=== PATIENT | female | born 1960 | race Caucasian/White ===

== ENCOUNTER 2019-06-11 18:47 | Emergency (ER) | payer OTHER ==
[2019-06-11 18:58] VITALS: TEMP 98.4; BMI 28.3
--- NOTE | 2019-06-11 18:59 | PDOC ---
Rapid Medical Evaluation Medical Evaluation: I have performed a brief in-person evaluation of this patient. The patient presents with a chief complaint of: c/o LUE shaking/heaviness x 6 months; recently came from [place] 3 days ago; also c/o substernal chest burning and tightness x 3 days; per son, patient has intermittent SOB x 2-3 weeks, but breathing heavier the past 2-3 days; hx of HLD Pertinent physical exam findings: Lungs clear, +LUE shaking, no focal deficits I have ordered the following: Labs, EKG The patient will proceed to the ED for further evaluation. 06/11/19 18:52
--- NOTE | 2019-06-11 20:33 | PDOC ---
History of Present Illness - General Chief Complaint: Chest Pain Stated Complaint: LEFT SIDE WEAKNESS Time Seen by Provider: 06/11/19 18:52 History Source: Patient, Family Exam Limitations: Language Barrier (Son translating at bedside) - History of Present Illness Initial Comments: 06/11/19 20:21 58yo never smoker with PMH HLD presenting with 3 days of intermittent substernal non-radiating chest tightness / burning that improves with advil and does not appear to be correlated with meals. Pt flew in from [place] 4-5 days ago. She endorses the sensation of not breathing well with a chest heaviness, reports this feels different than prior episodes of burning epigastric pain. No prior stress tests or ECHO. Denies fevers / chills / cough / nausea / vomiting / hemoptysis / urinary symptoms / abdominal pain / changes in bowel habits, back pain, leg pain or swelling. No history of blood clots, stroke, or [place]. Also endorsing intermittent left arm shakiness, lack of concentration, left knee joint pain over the past 3-4 months. PMH: HLD PSH: remote All: Aspirin causes GI upset, unclear systemic reaction Meds: PRN advil and tylenol for aches and pains SHx: never smoker, no ETOH Past History - Travel Traveled outside of the country in the last 30 days: Yes If so, where?: [place] Close contact w/someone who was outside of country & ill: No - Past Medical History Allergies/Adverse Reactions: Allergies Allergy/AdvReac Type Severity Reaction Status Date / Time aspirin AdvReac Verified 06/11/19 18:58 COPD: No Hypercholesterolemia: Yes - Suicide/Smoking/Psychosocial Hx Smoking History: Never smoked Hx Alcohol Use: No Drug/Substance Use Hx: No Review of Systems - Review of Systems Able to Perform ROS?: Yes (With help of son) Is the patient limited Hungarian proficient: Yes Constitutional: Yes: Weakness, Weight Stable. No: Chills, Diaphoresis, Fever, Night Sweats, Unintentional Wgt. Loss HEENTM: No: Symptoms Reported, Eye Pain, Blurred Vision, Nose Pain, Nose Congestion, Throat Pain Respiratory: Yes: Symptoms reported, Shortness of Breath. No: Cough, Orthopnea , SOB with Exertion, Wheezing, Productive cough, Hemoptysis Cardiac (ROS): Yes: Symptoms Reported, See HPI, Chest Tightness. No: Edema, Irregular Heart Rate, Lightheadedness, Palpitations, Syncope ABD/GI: No: Symptoms Reported, Abdominal Distended, Abd. Pain w/ defecation, Constipated, Diarrhea, Nausea, Vomiting : No: Burning, Dysuria, Discharge, Hematuria, Pain Musculoskeletal: Yes: Symptoms Reported (chronic pain from ?slipped disk), Back Pain, Joint Pain, Muscle Weakness. No: Joint Swelling Integumentary: No: Symptoms Reported Neurological: Yes: Headache (normal tension, resolvd since triage). No: Numbness, Dizziness All Other Systems: Reviewed and Negative *Physical Exam - Vital Signs Last Vital Signs Temp Pulse Resp BP Pulse Ox 98.4 F 95 H 16 189/91 H 99 06/11/19 18:50 06/11/19 18:50 06/11/19 18:50 06/11/19 18:50 06/11/19 18:50 - Physical Exam Comments: 06/11/19 20:38 Vitals reviewed, notable for hypertension to 189/91, HR 95 Gen: WDWN woman, appears stated age, laying in bed in no acute distress HEENT: normal morphologies, nontraumatic, symmetric, trachea midline CV: ejection murmur heard best at right sternal margin 2nd intercostal space, RRR, s1/s2 appreciated Pulm: CTABL, normal work of breathing, no wheezes / rales / rhonchi, good air movement Abd: soft, nontender, nondistended Pulses: 2+ radial and PT Neuro: alert and oriented, responding appropriately, MAEE, slight tremor in left hand, good sensation and strength throughout Ext: WWP, no clubbing, cyanosis, or edema Heart Score/ECG Review - History History: Slightly suspicious - Electrocardiogram EKG: Normal - Age Age: 45-65 - Risk Factors Risk Factors Heart Score: Yes Hx Hypercholesterolemia, No Hx Diabetes, No Smoking History Based on the list above the patient has:: 1-2 risk factors - Troponin Troponin: </= normal limit - Score Heart Score - Total: 2 ED Treatment Course - LABORATORY CBC & Chemistry Diagram: 06/11/19 21:30 06/11/19 21:30 Medical Decision Making - Medical Decision Making 06/11/19 20:45 58yo never smoker with PMH HLD presenting with subacute intermittent substernal non-radiating chest tightness / burning that improves with advil and does not appear to be correlated with meals with several other complains of chronic pain , neurological complaints. History concerning for r/o ACS, physical exam reassuring with no signs of DVT (Wells for PE - zero), never smoker with equal pulses without tearing back pain making dissection less likely, lungs clear with no signs of fluid overload - unlikely new HF, minimal concern for pericardial effusion but will do POCUS to r/o and assess for right heart strain. HEART Score 2. Chronic neurological changes without any new focal neruo deficits deferred to outpatient neurology evaluation - possible remote stroke vs radiculopathy. No emergent intervention necessary at this time for these chronic symptoms. Will likely arrange outpatient cardiology follow up for new murmur - pending findings and ultimate disposition. -CBC, CMP, Cardiac Profile -EKG, CXR PA/LAt -POCUS ECHO 06/11/19 21:35 -POCUS with no evidence of pericardial effusion, normal symmetric wall motion appreciated, cannot comment on right heart strain due to limited study. -EKG: Poor quality 2/2/ tremor, NSR, Rate 93, QTc 455, Possible left atrial enlargement, no ischemic changes or other concerning morphologies appreciated -Labs pending 06/11/19 21:45 -1L IVF ordered -Add-on D-dimer 06/11/19 22:50 -Labs unremarkable -CXR taken, pending upload and read -Pt feeling better during walk to radiology and back Plan for d/c home pending CXR 06/11/19 22:56 -Chest xray with normal mediastinal silhouette, no evidence of consolidation or effusion, no acute fractures evident on my read No evidence of ACS, pericarditis, myocarditis, pulmonary embolism, pneumothorax , pneumonia, Zoster, or esophageal perforation. Historically not abrupt in onset , tearing or ripping, pulses symmetric, no evidence of aortic dissection. f/u with PCP for evaluation of chronic symptoms, HTN, murmur. *DC/Admit/Observation/Transfer Diagnosis at time of Disposition: Atypical chest pain - Discharge Dispostion Disposition: HOME Condition at time of disposition: Improved Decision to Admit order: No - Referrals Referrals: Cady Connor MD [Primary Care Provider] - - Patient Instructions Printed Discharge Instructions: DI for Atypical Chest Pain Additional Instructions: You were seen and evaluated in the emergency department for chest pain, emergent causes have been ruled out. Please arrange follow up with your primary care provider, Dr. Connor, in the next several days. Please ask about your blood pressure as it was elevated in the emergency department and may require medication. Also inquire about a new heart murmur. Your left arm twitching should also be evaluated by your primary care provider with the possibility of evaluation by a neurologist. SEEK IMMEDIATE MEDICAL CARE IF: You have increased chest pain or pain that spreads to your arm, neck, jaw, back, or abdomen. You develop shortness of breath, an increasing cough, or you start coughing up blood. You have severe back or abdominal pain, feel nauseous, or vomit You develop severe weakness, fainting, or chills. You have a fever. THESE ARE EMERGENCIES - Do not drive yourself to the hospital. - Post Discharge Activity
[2019-06-11] MEDS ORDERED: SODIUM CHLORIDE 1,000 ML IV STA (21:42)
--- NOTE | 2019-06-11 21:45 | PDOC ---
Documentation entered by Carolynn Fernandez SCRIBE, acting as scribe for Vikash Bedoya MD. Vikash Bedoya MD: This documentation has been prepared by the Rebecca self Adrianna, SCRIBE, under my direction and personally reviewed by me in its entirety. I confirm that the documentation accurately reflects all work, treatment, procedures, and medical decision making performed by me. Attending Attestation - Resident Resident Name: MicahMitchel - [facility] HPI: The patient is a 58 year old female, with a significant PMH of HLD and GERD, who presents to the ED for evaluation of chest pain for 3 days. Patient notes sudden onset, intermittent, localized, substernal chest tightness and burning. Pain is alleviated by taking Advil, and is unaffected by PO intake. She reports associated dyspnea. Patient reports recent travel from [place] 5 days ago. Denies fever, chills, nausea, vomit, diarrhea, urinary symptoms, cough, abdominal pain. Allergies: Aspirin Surgical History: Social History: Denies EtOh, tobacco, or illicit drug use. PCP: Dr. Connor - Physicial Exam PE: 06/11/19 21:41 Supine in stretcher in nad mmm rrr s1 s2 no mrg ctab no wheezes rales or rhonchi soft nt nd No LE edema - Medical Decision Making 06/11/19 21:41 Chest tightness s/p flight HR 95 bpm not hypoxic EKG non concerning Trop pending Heart score 2 (age, risk factors) low risk MACE recent flight from [place] D dimer to r/o PE/DVT if negative will have pt follow up PMD
[2019-06-11 21:58] LABS: BASO % 0.3 % (0-2.0); EOS % 0.3 % (0-4.5); HEMATOCRIT 42.6 % (32.4-45.2); HEMOGLOBIN 14.6 GM/dL (10.7-15.3); LYMPH % 21.8 % (8-40); MCH 30.4 pg (25.7-33.7); MCHC 34.3 g/dl (32.0-36.0); MEAN CELL VOLUME 88.8 fl (80-96); MEAN PLT VOLUME 9.2 fl (7.5-11.1); NEUT % 68.6 % (42.8-82.8); PLATELET COUNT 318 K/MM3 (134-434); RBC 4.79 M/mm3 (3.60-5.2); RDW 13.7 % (11.6-15.6); WHITE BLOOD COUNT 11.3 K/mm3 (4.0-10.0)
[2019-06-11 22:13] LABS: INR 1.06 (0.83-1.09); PROTHROMBIN TIME (PATIENT) 12.5 SEC (9.7-13.0)
[2019-06-11 22:16] LABS: ALBUMIN 4.1 g/dl (3.4-5.0); ALK PHOS 68 U/L (45-117); ANION GAP 8 MMOL/L (8-16); BILIRUBIN,TOTAL 0.3 mg/dL (0.2-1); BLOOD UREA NITROGEN 14.3 mg/dL (7-18); CALCIUM 9.6 mg/dL (8.5-10.1); CHLORIDE 102 mmol/L (98-107); CO2 30 mmol/L (21-32); CREATININE 0.8 mg/dL (0.55-1.3); GLUCOSE,RANDOM 102 mg/dL (74-106); MAGNESIUM 2.3 mg/dL (1.8-2.4); POTASSIUM 4.1 mmol/L (3.5-5.1); SGOT/AST 12 U/L (15-37); SGPT/ALT 33 U/L (13-61); SODIUM 139 mmol/L (136-145); TOT PROT 7.8 g/dl (6.4-8.2)
[2019-06-11 23:26] VITALS: BP 149/80; PULSE 85
--- NOTE | 2019-06-13 09:08 | EKG ---
Test Reason : Blood Pressure : / mmHG Vent. Rate : 093 BPM Atrial Rate : 093 BPM P-R Int : 148 ms QRS Dur : 084 ms QT Int : 366 ms P-R-T Axes : 069 044 068 degrees QTc Int : 455 ms POOR DATA QUALITY, INTERPRETATION MAY BE ADVERSELY AFFECTED NORMAL SINUS RHYTHM POSSIBLE LEFT ATRIAL ENLARGEMENT BORDERLINE ECG NO PREVIOUS ECGS AVAILABLE Confirmed by MARY CHAVIRA MD ([id number]) on 06/13/2019 9:08:05 AM Referred By: Confirmed By:MARY CHAVIRA MD
== END 2019-06-11 23:31 | disposition home or self-care (01) ==
LOC: JER 18:47
PROC: 3E0337Z Introduction of Electrolytic and Water Balance Substance into Peripheral Vein, Percutaneous Approach (ICD-10-PCS; principal; 2019-06-11)
DX: R07.9 Chest pain, unspecified (principal); E78.00 Pure hypercholesterolemia, unspecified; K21.9 Gastro-esophageal reflux disease without esophagitis
CPT/HCPCS: 36415; 71046-TC-FY; 80053; 82550; 83735; 83880; 84484; 85025; 85379; 85610; 93005; 93010; 96360; 99284-25; J7030

== ENCOUNTER 2024-03-02 22:08 | Emergency (ER) | payer OTHER ==
[~2024-03-02 22:08] MED LIST: LIDOCAINE PATCH REMOVAL MC SCH
[2024-03-02 22:22] VITALS: BP 179/91; PULSE 62; RESP 18; TEMP 97.5; BMI 28.1
[2024-03-02] MEDS ORDERED: KETOROLAC TROMETHAMINE 30 MG/1 ML VIAL ONE (23:18)
[2024-03-02] MEDS ORDERED: LIDOCAINE 4% PATCH TP ONE (23:18)
[2024-03-02] MEDS ORDERED: METHOCARBAMOL 500 MG TABLET ONE (23:18)
[2024-03-02] MEDS: LIDOCAINE 5% TOPICAL PATCH TP ONE (23:26)
[2024-03-02] MEDS: METHOCARBAMOL 500 MG TABLET PO ONE (23:26)
[2024-03-02] MEDS: KETOROLAC TROMETHAMINE 30 MG/1 ML VIAL IM ONE (23:26)
== END 2024-03-03 00:30 | disposition home or self-care (01) ==
LOC: JER 22:08
PROC: 3E023GC Introduction of Other Therapeutic Substance into Muscle, Percutaneous Approach (ICD-10-PCS; principal; 2024-03-02)
DX: S39.012A Strain of muscle, fascia and tendon of lower back, initial encounter (principal); X50.1XXA Overexertion from prolonged static or awkward postures, initial encounter
CPT/HCPCS: 96372; 99284-25